=== PATIENT | female | born 1975 | race Caucasian/White ===

== ENCOUNTER 2022-06-21 07:41 | Inpatient (IN) | payer OTHER ==
[~2022-06-21 07:41] MED LIST: Bupivacaine 0.5% 50 ML MDV ONE; Dexamethasone 4 MG/ML SDV ONE; Glycopyrrolate 0.2 MG/ML 5 ML MDV ONE; Lidocaine 1% with EPINEPHrine 1:100,000 50 ML MDV ONE; Meropenem 500 MG SDV ONE; Neostigmine Methylsulfate 1 MG/ML 5 ML Syringe ONE; Ondansetron 4 MG/2 ML SDV ONE; Propofol 200 MG/20 ML SDV ONE; Rocuronium 50 MG/5 ML Vial ONE; Succinylcholine 200 MG/10 ML MDV ONE; fentaNYL 250 MCG/5 ML SDV ONE
[2022-06-21] MEDS ORDERED: diphenhydrAMINE 25 MG Cap PO PRN (08:02)
[2022-06-21] MEDS ORDERED: Ondansetron 4 MG/2 ML SDV IVPUSH PRN ×2 (08:02→17:00)
[2022-06-21] MEDS ORDERED: diphenhydrAMINE 50 MG/ML SDV IVPUSH PRN ×2 (08:02→17:00)
[2022-06-21] MEDS ORDERED: Naloxone 0.4 MG/ML SDV IVPUSH PRN (08:02)
[2022-06-21] MEDS ORDERED: Celecoxib 200 MG Cap PO ONE (08:15)
[2022-06-21] MEDS ORDERED: cefOXitin 2 GM in Sodium Chloride 0.9% 50 ML IV ONE (08:15)
[2022-06-21] MEDS ORDERED: Scopolamine 1.5 MG Transdermal Patch TOP ONE (08:15)
[2022-06-21] MEDS ORDERED: Acetaminophen 500 MG Tab PO ONE (08:15)
[2022-06-21] MEDS ORDERED: Dextrose 5%-Lactated Ringers 1,000 ML IV SCH ×2 (08:15→15:45)
[2022-06-21] MEDS ORDERED: Albuterol/Ipratropium 3.0-0.5 MG/3 ML Neb Soln NEB ONE (08:30)
[2022-06-21] MEDS ORDERED: Naloxone 0.4 MG/ML SDV IV PRN (09:00)
[2022-06-21] MEDS ORDERED: Ketamine 16 MG in Sodium Chloride 0.9% 19.84 ML IV SCH (09:30)
[2022-06-21] MEDS ORDERED: Ropivacaine 35 ML, dexAMETHasone 8 MG, EPINEPHrine 0.4 MG, Sodium Chloride 0.9% 42.6 ML NERVRT SCH ×4 (09:30)
[2022-06-21] MEDS ORDERED: Ketamine 500 MG/5 ML MDV IV SCH (09:30)
[2022-06-21] MEDS ORDERED: Linezolid 600 MG/300 ML Premix Bag IRR ONE (10:59)
[2022-06-21] MEDS: HYDROmorphone/Normal Saline 6 MG/30 ML PCA Vial IV PRN (11:25)
[2022-06-21] MEDS ORDERED: Lactated Ringers 1,000 ML ONE (11:38)
[2022-06-21] MEDS ORDERED: Rocuronium 50 MG/5 ML Vial ONE (11:52)
[2022-06-21] MEDS ORDERED: fentaNYL 100 MCG/2 ML SDV ONE ×2 (13:34→13:53)
[2022-06-21] MEDS ORDERED: Cyclobenzaprine 10 MG Tab PO PRN (16:20)
[2022-06-21] MEDS: Acetaminophen 500 MG Tab PO SCH (16:41)
[2022-06-21] MEDS: Vitamin A 100,000 Units/2 ML SDV IM SCH (16:41)
[2022-06-21] MEDS: MVI, Adult with Vitamin K 10 ML, Thiamine 200 MG, Zinc/Copper/Manganese/Selenium 1 ML i... IV SCH ×4 (16:41)
[2022-06-21] MEDS: cefOXitin 2 GM in Sodium Chloride 0.9% 50 ML IV SCH ×2 (16:41→23:05)
[2022-06-21] MEDS ORDERED: Acetaminophen 500 MG Tab PO PRN (17:00)
[2022-06-21] MEDS ORDERED: Albuterol/Ipratropium 3.0-0.5 MG/3 ML Neb Soln INH PRN (17:00)
[2022-06-21] MEDS ORDERED: Metoclopramide 10 MG/2 ML SDV IVPUSH PRN (17:00)
[2022-06-21] MEDS ORDERED: Pantoprazole 40 MG Vial IVPUSH SCH (17:00)
[2022-06-21] MEDS ORDERED: Labetalol 20 MG/4 ML Syringe IVPUSH PRN (17:00)
[2022-06-21] MEDS ORDERED: hydrOXYzine HCL 100 MG/2 ML SDV IM PRN (17:00)
[2022-06-21] MEDS: Albuterol/Ipratropium 3.0-0.5 MG/3 ML Neb Soln INH SCH (20:15)
[2022-06-21] MEDS: Montelukast 10 MG Tab PO SCH (20:15)
[2022-06-21] MEDS: Potassium Chloride 20 MEQ Tab.ER PO SCH (20:15)
[2022-06-21] MEDS: Mirtazapine 15 MG Tab PO SCH (20:15)
[2022-06-21] MEDS: Heparin Sodium 5,000 Units/ML Vial SUBCUT SCH (20:15)
[2022-06-21] MEDS: Metoprolol Succinate 25 MG Tab.ER PO SCH (20:16)
[2022-06-21] MEDS ORDERED: Tiotropium Bromide 4 GM Inhalation Spray (2.5mcg/1 dose; 10 doses) INH SCH (21:00)
[2022-06-21] MEDS: Dextrose 5%-Lactated Ringers 1,000 ML IV SCH (23:06)
[2022-06-22] MEDS: Acetaminophen 500 MG Tab PO SCH ×3 (00:56→16:37)
[2022-06-22] MEDS ORDERED: Iopamidol 612 MG/ML 50 ML SDV PO STA (03:17)
[2022-06-22] MEDS: cefOXitin 2 GM in Sodium Chloride 0.9% 50 ML IV SCH ×4 (04:36→23:12)
[2022-06-22] MEDS: Dextrose 5%-Lactated Ringers 1,000 ML IV SCH (04:36)
[2022-06-22 05:02] LABS: ESTIMATED GFR 63 mL/min (>60)
[2022-06-22] MEDS: Heparin Sodium 5,000 Units/ML Vial SUBCUT SCH ×2 (07:27→20:24)
[2022-06-22] MEDS: Tiotropium Bromide 4 GM Inhalation Spray (2.5mcg/1 dose; 10 doses) INH SCH (07:28)
[2022-06-22] MEDS: Albuterol/Ipratropium 3.0-0.5 MG/3 ML Neb Soln INH SCH ×4 (07:28→20:24)
[2022-06-22] MEDS ORDERED: LINZESS 72 MCG PO SCH (07:30)
[2022-06-22] MEDS ORDERED: Dextrose 5%-Lactated Ringers 1,000 ML IV SCH (07:45)
[2022-06-22] MEDS ORDERED: Furosemide 20 MG/2 ML VIAL IVPUSH ONE (09:00)
[2022-06-22] MEDS: Escitalopram 20 MG Tab PO SCH (09:25)
[2022-06-22] MEDS: Levothyroxine 50 MCG Tab PO SCH (09:25)
[2022-06-22] MEDS: Celecoxib 200 MG Cap PO SCH ×2 (09:26→20:24)
[2022-06-22] MEDS: SCOPOLAMINE PATCH CHECK TOP SCH (09:29)
[2022-06-22] MEDS: Magnesium Sulfate/Water 2 GM/50 ML BAG IV SCH ×3 (09:58→21:03)
[2022-06-22] MEDS: HYDROmorphone/Normal Saline 6 MG/30 ML PCA Vial IV PRN (16:07)
[2022-06-22] MEDS: MVI, Adult with Vitamin K 10 ML, Thiamine 200 MG, Zinc/Copper/Manganese/Selenium 1 ML i... IV SCH ×4 (16:34)
[2022-06-22] MEDS: Pantoprazole 40 MG Tab.CR PO SCH (16:38)
[2022-06-22] MEDS: LINZESS 72 MCG PO SCH (17:41)
[2022-06-22] MEDS: Vitamin A 100,000 Units/2 ML SDV IM SCH (17:41)
[2022-06-22] MEDS: Montelukast 10 MG Tab PO SCH (20:25)
[2022-06-22] MEDS: Potassium Chloride 20 MEQ Tab.ER PO SCH (20:25)
[2022-06-22] MEDS: Mirtazapine 15 MG Tab PO SCH (20:25)
[2022-06-22] MEDS: Metoprolol Succinate 25 MG Tab.ER PO SCH ×2 (20:30→21:03)
[2022-06-23] MEDS: Acetaminophen 500 MG Tab PO SCH ×3 (02:10→17:07)
[2022-06-23] MEDS: Magnesium Sulfate/Water 2 GM/50 ML BAG IV SCH ×4 (03:39→21:50)
[2022-06-23 05:12] LABS: ESTIMATED GFR 70 mL/min (>60)
[2022-06-23] MEDS: Tiotropium Bromide 4 GM Inhalation Spray (2.5mcg/1 dose; 10 doses) INH SCH (07:31)
[2022-06-23] MEDS: Albuterol/Ipratropium 3.0-0.5 MG/3 ML Neb Soln INH SCH ×4 (07:31→20:21)
[2022-06-23] MEDS ORDERED: Dextrose 5%-Lactated Ringers 1,000 ML IV SCH (07:45)
[2022-06-23] MEDS: Celecoxib 200 MG Cap PO SCH ×2 (08:19→20:21)
[2022-06-23] MEDS: Levothyroxine 50 MCG Tab PO SCH (08:19)
[2022-06-23] MEDS: Heparin Sodium 5,000 Units/ML Vial SUBCUT SCH ×2 (08:19→20:20)
[2022-06-23] MEDS: SCOPOLAMINE PATCH CHECK TOP SCH (08:20)
[2022-06-23] MEDS: Bisacodyl 5 MG Tab PO SCH ×2 (08:20→20:21)
[2022-06-23] MEDS: Docusate Sodium 100 MG Cap PO SCH ×2 (08:20→20:21)
[2022-06-23] MEDS: Escitalopram 20 MG Tab PO SCH (08:21)
[2022-06-23] MEDS: Albumin Human 25 GM in Premix Bag 1 BAG IV SCH (08:22)
[2022-06-23] MEDS ORDERED: Cyanocobalamin (Vitamin B12) 1,000 MCG/ML SDV IM ONE (09:00)
[2022-06-23] MEDS ORDERED: Furosemide 20 MG/2 ML VIAL IVPUSH ONE (09:00)
[2022-06-23] MEDS: Pantoprazole 40 MG Tab.CR PO SCH (17:07)
[2022-06-23] MEDS: LINZESS 72 MCG PO SCH (17:08)
[2022-06-23] MEDS: Vitamin A 100,000 Units/2 ML SDV IM SCH (17:13)
[2022-06-23] MEDS: Metoprolol Succinate 25 MG Tab.ER PO SCH (20:20)
[2022-06-23] MEDS: Potassium Chloride 20 MEQ Tab.ER PO SCH (20:21)
[2022-06-23] MEDS: Mirtazapine 15 MG Tab PO SCH (20:21)
[2022-06-23] MEDS: Montelukast 10 MG Tab PO SCH (20:22)
[2022-06-24] MEDS: Acetaminophen 500 MG Tab PO SCH ×3 (00:41→16:51)
[2022-06-24] MEDS: Magnesium Sulfate/Water 2 GM/50 ML BAG IV SCH (03:25)
[2022-06-24 05:20] LABS: ESTIMATED GFR 92 mL/min (>60)
[2022-06-24] MEDS ORDERED: Furosemide 20 MG/2 ML VIAL IVPUSH ONE ×2 (06:42→15:00)
[2022-06-24] MEDS: Albuterol/Ipratropium 3.0-0.5 MG/3 ML Neb Soln INH SCH ×4 (07:16→20:39)
[2022-06-24] MEDS: Tiotropium Bromide 4 GM Inhalation Spray (2.5mcg/1 dose; 10 doses) INH SCH (07:17)
[2022-06-24] MEDS: Levothyroxine 50 MCG Tab PO SCH (07:37)
[2022-06-24] MEDS: Docusate Sodium 100 MG Cap PO SCH ×2 (08:47→20:43)
[2022-06-24] MEDS: Bisacodyl 5 MG Tab PO SCH ×2 (08:47→20:43)
[2022-06-24] MEDS: Escitalopram 20 MG Tab PO SCH (08:47)
[2022-06-24] MEDS: Celecoxib 200 MG Cap PO SCH ×2 (08:47→20:40)
[2022-06-24] MEDS ORDERED: Potassium Phosphates 3 mMole/ML 15 ML SDV IV ONE (09:00)
[2022-06-24] MEDS: Albumin Human 25 GM in Premix Bag 1 BAG IV SCH (09:41)
[2022-06-24] MEDS: Azithromycin 125 MG in Sodium Chloride 0.9% 100 ML IV SCH ×2 (09:43→20:39)
[2022-06-24] MEDS: HYDROmorphone/Normal Saline 6 MG/30 ML PCA Vial IV PRN (10:14)
[2022-06-24] MEDS: Potassium Phos in 0.9 % NaCl 15 MMOL in Premix Bag 1 BAG IV SCH ×4 (11:08→14:10)
[2022-06-24] MEDS: Pantoprazole 40 MG Tab.CR PO SCH (16:51)
[2022-06-24] MEDS: Vitamin A 100,000 Units/2 ML SDV IM SCH (16:56)
[2022-06-24] MEDS: LINZESS 72 MCG PO SCH (17:40)
[2022-06-24] MEDS: Potassium Chloride 20 MEQ Tab.ER PO SCH (20:41)
[2022-06-24] MEDS: Mirtazapine 15 MG Tab PO SCH (20:41)
[2022-06-24] MEDS: Montelukast 10 MG Tab PO SCH (20:41)
[2022-06-24] MEDS: Metoprolol Succinate 25 MG Tab.ER PO SCH (20:42)
[2022-06-25] MEDS: Acetaminophen 500 MG Tab PO SCH ×3 (01:25→16:35)
[2022-06-25 05:04] LABS: ESTIMATED GFR 108 mL/min (>60)
[2022-06-25] MEDS ORDERED: Furosemide 20 MG/2 ML VIAL IVPUSH ONE (06:51)
[2022-06-25] MEDS: Tiotropium Bromide 4 GM Inhalation Spray (2.5mcg/1 dose; 10 doses) INH SCH (07:39)
[2022-06-25] MEDS: Albuterol/Ipratropium 3.0-0.5 MG/3 ML Neb Soln INH SCH ×4 (07:39→20:30)
[2022-06-25] MEDS: Levothyroxine 50 MCG Tab PO SCH (07:56)
[2022-06-25] MEDS ORDERED: Dextrose 5%-Lactated Ringers 1,000 ML IV SCH (08:15)
[2022-06-25] MEDS: Albumin Human 25 GM in Premix Bag 1 BAG IV SCH (08:21)
[2022-06-25] MEDS: Docusate Sodium 100 MG Cap PO SCH ×2 (09:09→20:33)
[2022-06-25] MEDS: Celecoxib 200 MG Cap PO SCH ×2 (09:09→20:31)
[2022-06-25] MEDS: Bisacodyl 5 MG Tab PO SCH ×2 (09:09→20:33)
[2022-06-25] MEDS: Escitalopram 20 MG Tab PO SCH (09:10)
[2022-06-25] MEDS: Azithromycin 125 MG in Sodium Chloride 0.9% 100 ML IV SCH (09:12)
[2022-06-25] MEDS ORDERED: Furosemide 20 MG/2 ML VIAL IV ONE ×2 (13:00→19:00)
[2022-06-25] MEDS: Pantoprazole 40 MG Tab.CR PO SCH (16:35)
[2022-06-25] MEDS: LINZESS 72 MCG PO SCH (17:06)
[2022-06-25] MEDS: Metoprolol Succinate 25 MG Tab.ER PO SCH (20:31)
[2022-06-25] MEDS: Mirtazapine 15 MG Tab PO SCH (20:31)
[2022-06-25] MEDS: Montelukast 10 MG Tab PO SCH (20:32)
[2022-06-25] MEDS: Potassium Chloride 20 MEQ Tab.ER PO SCH (20:33)
[2022-06-25] MEDS: HYDROmorphone 2 MG Tab PO PRN (23:36)
[2022-06-26] MEDS: HYDROmorphone 2 MG Tab PO PRN (03:53)
[2022-06-26] MEDS: Acetaminophen 500 MG Tab PO SCH ×3 (03:53→16:19)
[2022-06-26 04:51] LABS: ESTIMATED GFR 92 mL/min (>60)
[2022-06-26] MEDS ORDERED: Furosemide 20 MG/2 ML VIAL IVPUSH ONE (06:44)
[2022-06-26] MEDS: Levothyroxine 50 MCG Tab PO SCH (07:27)
[2022-06-26] MEDS: Albuterol/Ipratropium 3.0-0.5 MG/3 ML Neb Soln INH SCH ×4 (07:32→20:47)
[2022-06-26] MEDS: Tiotropium Bromide 4 GM Inhalation Spray (2.5mcg/1 dose; 10 doses) INH SCH (07:32)
[2022-06-26] MEDS ORDERED: Sodium Chloride 0.9% 10 ML Syringe IV PRN (08:11)
[2022-06-26] MEDS: Bisacodyl 5 MG Tab PO SCH ×2 (08:33→20:47)
[2022-06-26] MEDS: Docusate Sodium 100 MG Cap PO SCH ×2 (08:34→20:48)
[2022-06-26] MEDS: Celecoxib 200 MG Cap PO SCH ×2 (08:34→20:48)
[2022-06-26] MEDS: Potassium Chloride 20 MEQ Tab.ER PO SCH ×4 (08:34→20:47)
[2022-06-26] MEDS: Escitalopram 20 MG Tab PO SCH (08:38)
[2022-06-26] MEDS: Magnesium Sulfate/Water 2 GM in Premix Bag 1 BAG IV SCH ×3 (11:08→22:49)
[2022-06-26] MEDS: Furosemide 20 MG/2 ML VIAL IV SCH ×2 (11:49→17:04)
[2022-06-26] MEDS: Pantoprazole 40 MG Tab.CR PO SCH (16:19)
[2022-06-26] MEDS: LINZESS 72 MCG PO SCH (17:05)
[2022-06-26] MEDS: Mirtazapine 15 MG Tab PO SCH (20:46)
[2022-06-26] MEDS: Montelukast 10 MG Tab PO SCH (20:47)
[2022-06-26] MEDS: Metoprolol Succinate 25 MG Tab.ER PO SCH (20:48)
[2022-06-27] MEDS: Acetaminophen 500 MG Tab PO SCH ×2 (03:31→08:43)
[2022-06-27] MEDS: Magnesium Sulfate/Water 2 GM in Premix Bag 1 BAG IV SCH ×2 (03:31→10:39)
[2022-06-27] MEDS: Albuterol/Ipratropium 3.0-0.5 MG/3 ML Neb Soln INH SCH (06:59)
[2022-06-27] MEDS: Tiotropium Bromide 4 GM Inhalation Spray (2.5mcg/1 dose; 10 doses) INH SCH (07:00)
[2022-06-27 07:35] VITALS: BP 103/55; PULSE 96
[2022-06-27] MEDS: Levothyroxine 50 MCG Tab PO SCH (07:44)
[2022-06-27] MEDS ORDERED: Furosemide 20 MG/2 ML VIAL IVPUSH ONE (08:00)
[2022-06-27] MEDS: Celecoxib 200 MG Cap PO SCH (08:42)
[2022-06-27] MEDS: Bisacodyl 5 MG Tab PO SCH (08:42)
[2022-06-27] MEDS: Docusate Sodium 100 MG Cap PO SCH (08:42)
[2022-06-27] MEDS: Escitalopram 20 MG Tab PO SCH (08:43)
[2022-06-27] MEDS ORDERED: Potassium Chloride 20 MEQ Tab.ER PO SCH (09:00)
== END 2022-06-27 10:40 | disposition home or self-care (01) | DRG 330 ==
LOC: JP.MS 07:41 → JP.SDS 07:42 → EDSTATUS 08:45 → JP.2SS 14:00
PROVIDERS: ADMIT Surgery; ATTEND Surgery
PROC: 0DQ80ZZ Repair Small Intestine, Open Approach (ICD-10-PCS; principal; 2022-06-21)
PROC: 0DT80ZZ Resection of Small Intestine, Open Approach (ICD-10-PCS; 2022-06-21)
PROC: 0WUF0JZ Supplement Abdominal Wall with Synthetic Substitute, Open Approach (ICD-10-PCS; 2022-06-21)
PROC: 0DN80ZZ Release Small Intestine, Open Approach (ICD-10-PCS; 2022-06-21)
PROC: 30233N1 Transfusion of Nonautologous Red Blood Cells into Peripheral Vein, Percutaneous Approach (ICD-10-PCS; 2022-06-25)
DX: K56.51 Intestinal adhesions [bands], with partial obstruction (principal); F33.1 Major depressive disorder, recurrent, moderate; K43.0 Incisional hernia with obstruction, without gangrene; E87.6 Hypokalemia; I10 Essential (primary) hypertension; K21.9 Gastro-esophageal reflux disease without esophagitis; E66.9 Obesity, unspecified; G47.33 Obstructive sleep apnea (adult) (pediatric); Z68.28 Body mass index [BMI] 28.0-28.9, adult; Z90.49 Acquired absence of other specified parts of digestive tract; Z90.89 Acquired absence of other organs; Z98.890 Other specified postprocedural states; Z90.710 Acquired absence of both cervix and uterus; Z90.722 Acquired absence of ovaries, bilateral; Z79.52 Long term (current) use of systemic steroids; Z79.899 Other long term (current) drug therapy; Z88.8 Allergy status to other drugs, medicaments and biological substances
CPT/HCPCS: 36415; 36430; 74240; 74240-26; 80048; 80053; 83735; 83880; 84100; 84443; 85025; 85027; 86850; 86900; 86901; 86920; 86922; 88302; 88305; 88307; 93005; 94640; A9270-GY; C9113; J0171; J0330; J0456; J0694; J1100; J1170; J1644; J1940; J2020; J2185; J2405; J2704; J2710; J2795; J3010; J3411; J3420; J3475; J3490; J7120; J7121; J7620; P9016; P9047; Q9967